=== PATIENT | female | born 2005 | race Caucasian/White ===

== ENCOUNTER 2024-02-10 08:12 | Emergency (ER) | payer BC, SELFPAY ==
[2024-02-10 08:13] VITALS: BP 95/72; PULSE 105; RESP 18; TEMP 36.4; O2SAT 100; BMI 18.1
[2024-02-10] MEDS: 0.9% Normal Saline (500mL Bag) 500 ML 1000 ML IV (08:56)
[2024-02-10] MEDS: Ondansetron 4 MG/2 ML Vial IV (08:56)
[2024-02-10 09:09] LABS: Color, Urine Yellow (Yellow); Glucose, Dipstick Normal (Normal); Ketone-Dipstick 50 mg/dl (Negative); Leukocyte Esterase-Dipstick 25 /ul (Negative); Nitrite-Dipstick Negative (Negative); Occult Blood-Urine 10 /ul (Negative); Protein-Dipstick 100 mg/dl (Negative); Specific Gravity, Urine 1.025 (1.002-1.030); Urine Bilirubin Dipstick Negative (Negative); Urine Clarity Sl. Cloudy (Clear); Urine Urobilinogen 4 mg/dl (Normal)
[2024-02-10 09:22] LABS: Anion Gap 7 (5-15); BUN 13 mg/dL (7-18); BUN/Creat Ratio 26.9 RATIO (10-20); Calcium,Total 9.2 mg/dL (8.5-10.1); Chloride 103 mmol/L (98-107); Creatinine, Serum 0.48 mg/dL (0.55-1.02); EST Glomerular Filtration Rate 174 mL/min (>60); Est Glom Filt Rate - Afr Amer 210 mL/min (>60); Estimated Creatinine Clearance 120.48 ml/min; Glucose 110 mg/dL (74-106); Sodium Level 138 mmol/L (136-145)
--- NOTE | 2024-02-10 09:57 | EX.ED.DYSGE1 ---
HPI History of Present Illness Chief Complaint: Nausea/Vomiting Detail of Chief Complaint: Nausea and vomiting since this weekend. Informant: patient Onset/Context/Timing Onset: Days (Onset Friday) Context: Sudden Onset Timing: Intermittent Quality: Nausea and vomiting Location: Periumbilical pain Current Severity: Mild Maximum Severity: Moderate Worsened by: Vomiting Relieved by: Nothing Associated Symptoms Associated Symptoms: 1 ill contact, no constitutional symptoms. No drug use including marijuana Narrative Narrative: Patient is a 18-year-old female. She presents with nausea vomiting started this past Friday. She had 2 episodes on Friday. 1 episode on Friday. 2 episodes on Friday and 5 episodes since midnight. She denies hematemesis or coffee-ground emesis. She denies diarrhea. She has had 1 ill contact. She denies headache, visual, ocular auditory symptoms. She does report mild nasal congestion and cough. Cough is nonproductive. She denies shortness of breath. Denies dyspnea on exertion. She denies dysuria, frequency, urgency or hematuria. She has had decreased urine output. She does endorse lightheadedness. She has not noted any skin lesions. According to roommates she is paler in appearance than normal. Prior similar symptoms: Yes Recent Illness/Hospitalization: No [facility] Medical History Anemia Hx of absence seizures Congenital scoliosis Home Medications ?Medication ?Instructions ?Recorded ?Last Taken ?Type NK 02/10/24 Unknown History Allergy/AdvReac Type Severity Reaction Status Date / Time No Known Allergies Allergy Verified 02/10/24 08:58 Social History (Updated 02/10/24 @ 09:[address] Nicanor Mayo MD) household members: other housing: house Smoking Status: Never smoker ROS ROS ED Constitutional Constitutional ED: Reports chills; Denies fever(s), subjective or sweats Eyes Eyes: Denies blurry vision or change in vision ENT ENT ED: Reports other Details: Does endorse nasal congestion. ; Denies ear pain, rhinorrhea or sore throat Cardiovascular Cardiovascular: Reports other Details: Does not orthostatic lightheadedness. ; Denies chest pain, orthopnea, palpitations or paroxysmal nocturnal dyspnea Respiratory/Chest Respiratory/Chest: Reports cough; Denies dyspnea, dyspnea on exertion, orthopnea, paroxysmal nocturnal dyspnea or sputum Gastrointestinal Gastrointestinal: Reports vomiting; Denies abdominal pain, constipation, diarrhea, melena or nausea Genitourinary Genitourinary ED: Denies dysuria, hematuria or urinary frequency Musculoskeletal Musculoskeletal: Denies arthralgias, back pain, myalgias or neck pain Integumentary Denies abscess or Abrasions Neurologic Neurologic: Reports weakness Endocrine Endocrinology: Denies cold intolerance or heat intolerance Hematologic/Lymphatic Hematologic/Lymphatic: Reports systems reviewed and no addt'l complaints, except as documented EXAM Physical Exam Const Vital Signs: 02/10/24 08:13 02/10/24 10:13 Temperature 97.6 F L Temperature Source Oral Pulse Rate 105 H 95 Respiratory Rate 18 18 Blood Pressure 95/72 96/59 L Blood Pressure Mean 79 71 Pulse Ox 100 99 Oxygen Delivery Method Room Air Room Air Positive well nourished and well developed Constitutional Narrative: Patient appears pale. She appears ill. She is tachycardic. BMI is 18. General Appearance ED: well developed and pallor HEENT Reports dry mucous membranes HEENT Narrative: Head is atraumatic no cephalic. Ears normal. External auditory canal normal. TMs normal. Posterior pharynx is normal. Mucosa is dry. Mouth ED: Yes dry mucous membranes Mouth: dry mucous membranes Eyes PERRL and EOMs intact bilaterally General Eye ED: Negative for pale conjunctiva or scleral icterus Neck no lymphadenopathy, supple and no JVD Chest Wall inspection of chest normal and palpation of chest normal Resp normal respiratory effort and clear to auscultation bilaterally Cardio regular rhythm, S1 normal heart sound, S2 normal heart sound and no murmurs Rate: tachycardic GI non-distended and no masses; Negative for normal to inspection, nondistended, normoactive bowel sounds, non-tender or hepatosplenomegaly Auscultation: hypoactive bowel sounds Palpation: soft and tender periumbilical; Negative for guarding, splenomegaly, mass or rebound tenderness present Back/Spine no CVA tenderness Extremity normal to inspection General Extremety ED: Negative for edema or tenderness General Extremity: Negative for edema Neuro oriented x3, CN's II-XII intact bilaterally and no sensory deficits noted Sensorium / Orientation: alert Motor Exam: strength 5/5 throughout Psych Psych Narrative: Affect is flat. Skin no rashes or lesions noted, no wounds and No skin turgor normal General Skin Exam: pallor; Negative for jaundice MDM MDM MDM Narrative Medical decision making narrative: Clinically patient is dehydrated. Based on her weight of only 40 kg a 500 cc bolus was ordered. Patient has not urinated since the bolus was administered. Since she has ketones in her urine D5 normal saline was ordered. The pharmacist had to enter this because of the fluid shortage and would not allow me to enter the order. Electrolyte panel was obtained to assess acid-base status, electrolytes and renal function. CBC is not indicated. UA to assess for ketones. Urine does reveal ketones. Lab Data Attestation: I reviewed the patient's lab results. Lab results narrative: BUN/creatinine ratio is 27:1. Electrolytes are unremarkable. Urinalysis reveals an elevated specific gravity with positive ketones. Labs: Laboratory Results - last 24 hr 02/10/24 09:02 Sodium 138 Potassium 4.0 Chloride 103 Carbon Dioxide 27.0 Anion Gap 7 BUN 13 Creatinine 0.48 L Estim Creat Clear Calc 120.48 Est GFR (MDRD) Af Amer 210 Est GFR (MDRD) Non-Af 174 BUN/Creatinine Ratio 26.9 H Glucose 110 H Calcium 9.2 Urine Color Yellow Urine Clarity Sl. Cloudy Urine pH 5.0 Ur Specific Lyndon 1.025 Urine Protein 100 H Urine Glucose (UA) Normal Urine Ketones 50 H Urine Occult Blood 10 H Urine Nitrite Negative Urine Bilirubin Negative Urine Urobilinogen 4 H Ur Leukocyte Esterase 25 H Treatment and Re-Evaluation :: Patient was reassessed at 1047. She passed p.o. challenge. She has no nausea and has not vomited. Therefore, will discharge to home. Discharge Plan Triage Chief Complaint: Nausea/Vomiting ED Provider: Nicanor Mayo Dx/Rx/DC Orders Clinical Impression: Intractable nausea and vomiting, Acute dehydration, Acute prerenal azotemia, History of seizure Instructions: ED Vomiting (Adult) Prescriptions: No Action NK Primary Care Provider: Care Physician,No Primary Referrals: Care Physician,No Primary [Primary Care Provider] - Doctor,Your [Non-Staff] - As Needed Print Language: Georgian Disposition Disposition: Home, Self Care
[2024-02-10 10:13] VITALS: BP 96/59; PULSE 95; RESP 18; O2SAT 99
[2024-02-10] MEDS: Dextrose 5%-Lactated Ringers 1,000 ML 999 ML IV (11:01)
[2024-02-10 12:00] VITALS: BP 117/67; PULSE 91; RESP 18; TEMP 36.6; O2SAT 99
== END 2024-02-10 12:34 | disposition home or self-care (01) ==
PROVIDERS: Emergency Provider Emergency Medicine; Visit Provider Emergency Medicine
DX: R11.2 Nausea with vomiting, unspecified (principal); G40.909 Epilepsy, unspecified, not intractable, without status epilepticus; E86.0 Dehydration; R79.89 Other specified abnormal findings of blood chemistry
CPT/HCPCS: 80048; 81002; 96361; 96365; 96366; 96375; 99284; J7040; A4216; J2405